=== PATIENT | male | born 1935 | race Caucasian/White ===

== ENCOUNTER → 2016-09-04 | Outpatient (CLI) | payer MEDICARE, BC ==
[~2016-09-04] MED LIST: SODIUM CHLORIDE 0.9% 250 ML in EMPTY BAG 1 BAG IV PRN; SODIUM CHLORIDE 0.9% 500 ML in EMPTY BAG 1 BAG IV PRN
[2016-09-04 15:38] VITALS: BP 131/67; PULSE 71; RESP 18; TEMP 98
== END | disposition home or self-care (01) ==
LOC: PROCWHC3 10:58
PROVIDERS: ATTEND Internal Medicine Hematology & Oncology
DX: D46.9 Myelodysplastic syndrome, unspecified (principal)
CPT/HCPCS: 86900; 86901; 86850; 86920; 36430; P9016